=== PATIENT | female | born 1940 | race Caucasian/White ===

== ENCOUNTER → 2016-07-15 | Outpatient (CLI) | payer OTHER ==
[2012-12-30 10:50] VITALS: BP 162/67
== END ==
LOC: LAB 07:36
PROVIDERS: ATTEND Internal Medicine Gastroenterology
DX: K64.0 First degree hemorrhoids (principal)
CPT/HCPCS: 82270

== ENCOUNTER 2017-02-14 09:05 | Inpatient (IN) | payer OTHER ==
[2017-02-14] MEDS ORDERED: NS 250 ML IV 250 ML IV ONE (11:14)
[2017-02-14 11:26] LABS: BILIRUBIN,URINE NEGATIVE (NEGATIVE); BLOOD/HEMOGLOBIN,URINE 2+ (NEGATIVE); GLUCOSE, URINE NEGATIVE (NEGATIVE); KETONES,URINE NEGATIVE (NEGATIVE); LEUKOCYTE ESTERASE ,URINE 1+ (NEGATIVE); NITRITES,URINE NEGATIVE (NEGATIVE); PROTEIN,URINE NEGATIVE (NEGATIVE); UROBILINOGEN,URINE NORMAL (NORMAL)
[2017-02-14 11:36] LABS: APPEARANCE,URINE SLIGHTLY HAZY (CLEAR); COLOR,URINE YELLOW (YELLOW)
[2017-02-14 11:37] LABS: AMORPHOUS SEDIMENT,UR 1+ /HPF (NEGATIVE); BACTERIA,URINE 1+ /HPF (NEGATIVE); SQUAMOUS EPITHELIAL CELL,UR FEW /HPF (NEGATIVE)
[2017-02-14 11:51] LABS: BASOPHILS # (AUTO) 0.1 X10^3/uL (0.0-0.1); BASOPHILS % (AUTO) 1.1 % (0.2-1.0); EOSINOPHILS # (AUTO) 0.3 x10^3/uL (0.0-0.2); HEMATOCRIT 40.3 % (36.0-47.0); HEMOGLOBIN 13.9 g/dL (12.0-16.0); LYMPHOCYTES # (AUTO) 2.1 X10^3/uL (1.3-2.9); LYMPHOCYTES % (AUTO) 24.2 % (21.0-51.0); MEAN CORPUSCULAR HEMOGLOBIN 29.3 pg (27.0-34.0); MEAN CORPUSCULAR HGB CONC 34.6 g/dL (33.0-35.0); MEAN CORPUSCULAR VOLUME 84.7 fL (80.0-100.0); MEAN PLATELET VOLUME 8.3 fL (7.4-11.0); MONOCYTES # (AUTO) 0.6 x10^3/uL (0.3-0.8); MONOCYTES % (AUTO) 7.3 % (0.0-13.0); NEUTROPHILS # (AUTO) 5.6 x10^3/uL (2.2-4.8); NEUTROPHILS % (AUTO) 64.4 % (42.0-75.0); PLATELET COUNT 161 X10^3/uL (150.0-450.0); RED BLOOD COUNT 4.76 X10^6/uL (3.5-5.4); RED CELL DISTRIBUTION WIDTH 13.1 % (11.6-16.5); WHITE BLOOD COUNT 8.7 X10^3/uL (3.6-10.0)
[2017-02-14 12:00] VITALS: BMI 22.4
[2017-02-14] MEDS ORDERED: PREVNAR 13 IM ONE (12:00)
[2017-02-14 12:15] LABS: ALANINE AMINOTRANSFERASE 19 Units/L (12-78); ALBUMIN 3.2 g/dL (3.4-5.0); ALKALINE PHOSPHATASE 59 Units/L (46-116); ASPARTATE AMINO TRANSFERASE 21 Units/L (15-37); BLOOD UREA NITROGEN 20 mg/dL (7-18); CALCIUM 9.1 mg/dL (8.5-10.1); CARBON DIOXIDE 27.2 mmol/L (21-32); CHLORIDE 107 mmol/L (98-107); COR CA(FOR HYPOALB) 9.7 mg/dL (8.5-10.1); CREATINE KINASE 103 Units/L (26-192); CREATINE KINASE MB < 1.0 ng/mL (0-4.0); SODIUM 142 mmol/L (136-145); TOTAL PROTEIN 6.7 g/dL (6.4-8.2); TROPONIN I < 0.02 ng/mL (0-1.5); eGFR BLACK RACES > 60 (>60); eGFR NON BLACK RACES 51 (>60)
--- NOTE | 2017-02-14 12:24 | RAD ---
Examination: AP chest History: SOB and syncope Comparison reference: 09/29/2012 Findings: Continued normal heart size with essentially clear lungs. No pulmonary consolidation, pleur al fluid or pneumothorax is seen. A right shoulder prosthesis is present. Impression: No acute chest disease demonstrated. Status post right TSA. Reported By:
[2017-02-14] MEDS: NS 1000 ML 1,000 ML IV SCH (13:33)
[2017-02-14 15:43] LABS: CREATINE KINASE 100 Units/L (26-192); CREATINE KINASE MB < 1.0 ng/mL (0-4.0); TROPONIN I < 0.02 ng/mL (0-1.5)
[2017-02-14] MEDS: SYNTHROID 50 mcg TAB PO SCH (18:35)
[2017-02-14 19:43] LABS: CKMB % 1.1 % (<4); CREATINE KINASE 93 Units/L (26-192); CREATINE KINASE MB < 1.0 ng/mL (0-4.0); TROPONIN I < 0.02 ng/mL (0-1.5)
[2017-02-14] MEDS ORDERED: TUSSIONEX PENNKINETIC SUSP PO PRN (21:29)
[2017-02-14] MEDS: NS IV SCH (21:53)
[2017-02-14] MEDS: ROCEPHIN IV SCH (21:53)
[2017-02-14] MEDS ORDERED: DUONEB 0.5 MG/3 MG ONE (22:01)
[2017-02-14] MEDS ORDERED: SALINE 3% 15 ML NEB TX ONE (22:02)
[2017-02-14] MEDS ORDERED: SALINE 3% 15 ML NEB TX NEB ONE (22:11)
[2017-02-14] MEDS: DUONEB 0.5 MG/3 MG NEB SCH (22:13)
[2017-02-15] MEDS: DUONEB 0.5 MG/3 MG NEB SCH ×6 (00:05→21:20)
[2017-02-15 06:13] LABS: BASOPHILS % (AUTO) 0.6 % (0.2-1.0); EOSINOPHILS # (AUTO) 0.3 x10^3/uL (0.0-0.2); HEMATOCRIT 36.2 % (36.0-47.0); HEMOGLOBIN 12.6 g/dL (12.0-16.0); LYMPHOCYTES # (AUTO) 2.1 X10^3/uL (1.3-2.9); LYMPHOCYTES % (AUTO) 24.6 % (21.0-51.0); MEAN CORPUSCULAR HEMOGLOBIN 29.6 pg (27.0-34.0); MEAN CORPUSCULAR HGB CONC 34.8 g/dL (33.0-35.0); MEAN PLATELET VOLUME 8.5 fL (7.4-11.0); MONOCYTES # (AUTO) 0.7 x10^3/uL (0.3-0.8); MONOCYTES % (AUTO) 8.6 % (0.0-13.0); NEUTROPHILS # (AUTO) 5.5 x10^3/uL (2.2-4.8); NEUTROPHILS % (AUTO) 63.2 % (42.0-75.0); PLATELET COUNT 152 X10^3/uL (150.0-450.0); RED BLOOD COUNT 4.25 X10^6/uL (3.5-5.4); RED CELL DISTRIBUTION WIDTH 13.3 % (11.6-16.5); WHITE BLOOD COUNT 8.7 X10^3/uL (3.6-10.0)
[2017-02-15 06:31] LABS: ALANINE AMINOTRANSFERASE 16 Units/L (12-78); ALKALINE PHOSPHATASE 49 Units/L (46-116); ASPARTATE AMINO TRANSFERASE 19 Units/L (15-37); BLOOD UREA NITROGEN 20 mg/dL (7-18); CALCIUM 8.3 mg/dL (8.5-10.1); CARBON DIOXIDE 26.7 mmol/L (21-32); CHLORIDE 110 mmol/L (98-107); COR CA(FOR HYPOALB) 9.1 mg/dL (8.5-10.1); CREATININE 0.99 mg/dL (0.55-1.02); SODIUM 144 mmol/L (136-145); TOTAL PROTEIN 5.9 g/dL (6.4-8.2); eGFR BLACK RACES > 60 (>60); eGFR NON BLACK RACES 58 (>60)
[2017-02-15] MEDS: NS 1000 ML 1,000 ML IV SCH ×4 (07:00→20:38)
--- NOTE | 2017-02-15 09:11 | RAD ---
HISTORY: Dyspnea, single Study: Two-view chest Comparison: February 14, 2017 Findings: The heart is normal. There is no lobar mass or consolidation. There is no effusion or pneumothorax. T he patient is status post right total shoulder arthroplasty. IMPRESSION: No acute cardiopulmonary disease. Reported By:
[2017-02-15] MEDS: ROBITUSSIN DM PO SCH ×4 (09:16→20:38)
[2017-02-15] MEDS: NS IV SCH (09:16)
[2017-02-15] MEDS: ROCEPHIN IV SCH (09:16)
[2017-02-15] MEDS: SYNTHROID 50 mcg TAB PO SCH (15:59)
--- NOTE | 2017-02-15 16:00 | DR.H&P ---
H&P - History & Physical for Day of: H&P Date: 02/14/17 - Chief Complaint Chief Complaint: COUGH, NEAR SYNCOPE, SHORT OF BREATH - Allergies Allergies/Adverse Reactions: Allergies Allergy/AdvReac Type Severity Reaction Status Date / Time No Known Drug Allergies Allergy Verified 02/14/17 11:14 - History of Present Illness History of Present Illness: IS A 76 YEAR OLD PATIENT OF OURS WHO WAS A DIRECT ADMISSION FROM OUR OFFICE. SHE PRESENTED WITH COMPLAINTS OF COUGH, SHORTNESS OF BREATH, AND NEAR SYNCOPE. PATIENT REPORTS THAT THE COUGH IS NON- PRODUCTIVE AND THAT SHORTNESS OF BREATH IS WORSE ON EXERTION. SHE ALSO REPORTS INCREASED SHORTNESS OF BREATH AND PRESSURE WHEN LYING DOWN. PATIENT STATES THAT SHE JUST DOESNT FEEL GOOD AND FELT LIKE SHE WOULD PASS OUT ON EXAMINATION, LUNGS WERE NOTED WITH SCATTERED WHEEZING AND RHONCHI TO AUSCULTATON. ABDOMEN ROUND, SOFT, AND NON-TENDER WITH NORMAL BOWEL SOUNDS NOTED IN ALL QUADRANTS. SHE IS NOTED WITH COMPLAINTS OF TINGLING TO THE RIGHT SIDE OF THE FACE AT TIMES. WE PLANNED TO ADMIT PATIENT FOR FURTHER TREATMENT AND EVALUATION. WE PLANNED TO OBTAIN CBC, CMP, SERIAL CARDIAC ENZYMES AND EKGs, A CHEST XRAY, AND A URINALYSIS ON ADMISSION. ON ADMISSION, PATIENTS VITAL SIGNS WERE 97.9-75-18- 100%-114/55. ABNORMAL LAB VALUES INCLUDE THE FOLLOWING: BUN 20, CREATININE 1.10 , GFR 51, ALBUMIN 3.2. CARDIAC ENZYMES WERE UNREMARKABLE. URINALYSIS REPORTS WBC 2-4, RBC 2-4, LEUKOCYTES 1+, BACTERIA 1+, OCCULT BLOOD 2+. NEGATIVE FOR NITIRITES, PROTEIN, OR KETONES. CHEST XRAY REPORTED STATUS POST RIGHT TSA, NO ACUTE CHEST DISEASE DEMONSTRATED. INITIAL EKG REPORTED SINUS THYTHM, ATRIA PREMATURE COMPLEXES, HR 61. WE OBTAINED SPUTUM AND BLOOD CULTURES. CULTURES ARE PENDING. GRAM STAIN REPORTED GROWTH OF FEW GRAM POSITIVE COCCI, FEW GRAM NEGATIVE RODS, MANY WBC. PATIENT WAS STARTED ON THE PNEUMONIA PROTOCOL. ROCEPHIN 1GM DAILY, TUSSIONEX 5ML PO BID PRN, ROBITUSSIN 10ML PO QID, NORMAL SALINE AT 75ML/HR, AND DUONEBS Q4H. WE PLAN TO FOLLOW UP WITH AM LABS AND CHEST XRAY AND CONTINUE TO MONITOR PATIENT. - Past Surgical History Surgical History: Appendectomy, , Hysterectomy, Ortho Surgery - Family History Family Medical History: Cancer - Social History Does patient currently use any type of tobacco product: No Does any household member use tobacco: No Alcohol Use: None Drug Use: None - Physical Exam Vital Signs: Temperature 97.9 F Pulse Rate [Right Brachial] 75 Pulse Rate [Left Brachial] 77 Pulse Rate 67 Respiratory Rate 18 Blood Pressure [Right Arm] 114/55 Blood Pressure [Left Arm] 104/55 Blood Pressure 162/67 O2 Sat by Pulse Oximetry 98
--- NOTE | 2017-02-15 18:16 | VAS ---
VENOUS ULTRASOUND DOPPLER EXAMINATION OF THE RIGHT LOWER EXTREMITY HISTORY: Leg pain Comparison: None TECHNIQUE: Multiple brothers scale and color flow Doppler images of the deep venous system were obtained of the right lower extremity. FINDINGS: The deep venous system of the right lower extremity was evaluated from the level of the common femora l vein through the popliteal vein. Normal color flow and augmentation can be observed. In addition, normal compression is seen throughout the deep venous system. IMPRESSION: 1. Negative for DVT. Reported By:
[2017-02-16] MEDS: DUONEB 0.5 MG/3 MG NEB SCH ×6 (01:14→20:07)
[2017-02-16] MEDS: NS 1000 ML 1,000 ML IV SCH ×3 (02:22→18:16)
[2017-02-16 05:08] LABS: BASOPHILS % (AUTO) 0.5 % (0.2-1.0); EOSINOPHILS # (AUTO) 0.3 x10^3/uL (0.0-0.2); EOSINOPHILS % (AUTO) 3.9 % (0.9-2.9); HEMATOCRIT 34.1 % (36.0-47.0); HEMOGLOBIN 11.9 g/dL (12.0-16.0); LYMPHOCYTES # (AUTO) 2.3 X10^3/uL (1.3-2.9); LYMPHOCYTES % (AUTO) 35.3 % (21.0-51.0); MEAN CORPUSCULAR HEMOGLOBIN 29.8 pg (27.0-34.0); MEAN CORPUSCULAR HGB CONC 34.9 g/dL (33.0-35.0); MEAN CORPUSCULAR VOLUME 85.4 fL (80.0-100.0); MEAN PLATELET VOLUME 8.4 fL (7.4-11.0); MONOCYTES # (AUTO) 0.5 x10^3/uL (0.3-0.8); MONOCYTES % (AUTO) 8.3 % (0.0-13.0); NEUTROPHILS # (AUTO) 3.4 x10^3/uL (2.2-4.8); PLATELET COUNT 141 X10^3/uL (150.0-450.0); RED CELL DISTRIBUTION WIDTH 13.6 % (11.6-16.5); WHITE BLOOD COUNT 6.5 X10^3/uL (3.6-10.0)
[2017-02-16 05:23] LABS: ALANINE AMINOTRANSFERASE 16 Units/L (12-78); ALKALINE PHOSPHATASE 47 Units/L (46-116); ASPARTATE AMINO TRANSFERASE 18 Units/L (15-37); BLOOD UREA NITROGEN 15 mg/dL (7-18); CARBON DIOXIDE 25.4 mmol/L (21-32); CHLORIDE 110 mmol/L (98-107); COR CA(FOR HYPOALB) 8.8 mg/dL (8.5-10.1); CREATININE 1.01 mg/dL (0.55-1.02); SODIUM 144 mmol/L (136-145); TOTAL PROTEIN 5.9 g/dL (6.4-8.2); eGFR BLACK RACES > 60 (>60); eGFR NON BLACK RACES 56 (>60)
[2017-02-16] MEDS ORDERED: K-RIDER 10 MEQ/NS 100 ML 10 MEQ/100 ML BAG IV PRN (06:08)
[2017-02-16] MEDS ORDERED: K-LYTE EFFERVESCENT PO PRN (06:08)
[2017-02-16] MEDS ORDERED: MAGNESIUM SULFATE 1 GM/100 mL PREMIX 1 GM/100 ML BAG IV PRN (06:08)
[2017-02-16] MEDS ORDERED: MAG-OX TAB PO PRN (06:08)
[2017-02-16] MEDS: NS IV SCH (09:13)
[2017-02-16] MEDS: ROCEPHIN IV SCH (09:13)
[2017-02-16] MEDS: ROBITUSSIN DM PO SCH ×4 (09:13→21:11)
[2017-02-16] MEDS: SYNTHROID 50 mcg TAB PO SCH ×2 (09:13→15:30)
[2017-02-17] MEDS: DUONEB 0.5 MG/3 MG NEB SCH ×6 (00:47→16:16)
[2017-02-17] MEDS: NS 1000 ML 1,000 ML IV SCH ×2 (02:28→04:50)
[2017-02-17 05:12] LABS: ALANINE AMINOTRANSFERASE 15 Units/L (12-78); ALBUMIN 3.2 g/dL (3.4-5.0); ALKALINE PHOSPHATASE 52 Units/L (46-116); ASPARTATE AMINO TRANSFERASE 18 Units/L (15-37); BLOOD UREA NITROGEN 16 mg/dL (7-18); CALCIUM 8.6 mg/dL (8.5-10.1); CARBON DIOXIDE 25.7 mmol/L (21-32); CHLORIDE 107 mmol/L (98-107); COR CA(FOR HYPOALB) 9.2 mg/dL (8.5-10.1); CREATININE 0.97 mg/dL (0.55-1.02); SODIUM 142 mmol/L (136-145); TOTAL PROTEIN 6.6 g/dL (6.4-8.2); eGFR BLACK RACES > 60 (>60); eGFR NON BLACK RACES 59 (>60)
[2017-02-17 05:25] LABS: BASOPHILS # (AUTO) 0.1 X10^3/uL (0.0-0.1); BASOPHILS % (AUTO) 0.9 % (0.2-1.0); EOSINOPHILS # (AUTO) 0.4 x10^3/uL (0.0-0.2); EOSINOPHILS % (AUTO) 4.8 % (0.9-2.9); HEMATOCRIT 36.4 % (36.0-47.0); HEMOGLOBIN 12.7 g/dL (12.0-16.0); LYMPHOCYTES # (AUTO) 2.1 X10^3/uL (1.3-2.9); LYMPHOCYTES % (AUTO) 28.1 % (21.0-51.0); MEAN CORPUSCULAR HEMOGLOBIN 29.7 pg (27.0-34.0); MEAN CORPUSCULAR HGB CONC 34.9 g/dL (33.0-35.0); MEAN CORPUSCULAR VOLUME 85.2 fL (80.0-100.0); MEAN PLATELET VOLUME 8.5 fL (7.4-11.0); MONOCYTES # (AUTO) 0.6 x10^3/uL (0.3-0.8); MONOCYTES % (AUTO) 8.2 % (0.0-13.0); NEUTROPHILS # (AUTO) 4.4 x10^3/uL (2.2-4.8); PLATELET COUNT 163 X10^3/uL (150.0-450.0); RED BLOOD COUNT 4.27 X10^6/uL (3.5-5.4); RED CELL DISTRIBUTION WIDTH 13.4 % (11.6-16.5); WHITE BLOOD COUNT 7.5 X10^3/uL (3.6-10.0)
[2017-02-17] MEDS: ROBITUSSIN DM PO SCH ×3 (09:12→17:46)
[2017-02-17] MEDS: NS IV SCH (09:12)
[2017-02-17] MEDS: ROCEPHIN IV SCH (09:12)
[2017-02-17] MEDS: SYNTHROID 50 mcg TAB PO SCH ×2 (13:53→15:29)
[2017-02-17 18:20] VITALS: BP 167/80
--- NOTE | 2017-02-17 20:19 | PCM.PROG ---
Progress Note - Progress Note for Day of Date: 02/15/17 - Subjective Subjective: WAS ADMITTED FOR NEAR SYNCOPE, COUGH, AND SHORTNESS OF BREATH. TODAY, PATIENT IS ALERT AND ORIENTED, SITTING UP IN BED ON MORNING ROUNDS. PATIENTS FAMILY IS AT BEDSIDE. SHE CONTINUES WITH NON-PRODUCTIVE COUGH AND SHORTNESS OF BREATH. SHE IS ALSO NOTED WITH RIGHT LEG TENDERNESS. SHE DENIES ANY KNOWN INJURY. ON EXAMINATION, LUNGS CONTINUE WITH SCATTERED WHEEZING AND RHONCHI. ABDOMEN IS ROUND, SOFT, AND NON-TENDER WITH NORMAL BOWEL SOUNDS NOTED IN ALL QUADRANTS. RIGHT LOWER EXTREMITY IS NOTED TO BE SLIGHTLY MORE EDEMATOUS THAN THE LEFT LEG. PATIENT IS UTILIZING OXYGEN VIA NASAL CANNULA AT L/ MIN AT THIS TIME. HER VITAL SIGNS ARE 97.9-75-18-100%-114/55. ABNORMAL LAB VALUES INCLUDE THE FOLLOWING HGB 11.9, HCT 34.1, CHLORIDE 110, BUN 20, GFR 58, CALCIUM 8.3, TOTAL PROTEIN 5.9, ALBUMIN 3.0, A/G RATIO 1.0. CARDIAC ENZYMES HAVE BEEN WITHIN NORMAL LIMITS. A URINALYSIS WAS OBTAINED LAST NIGHT AND REPORTS WBC 2-4, RBC 2-4, LEUKOCYTES 1+, BACTERIA 1+, PROTEIN NEGATIVE, NITRITIES NEGATIVE. TODAYS CHEST XRAY REPORTS NO ACUTE CARDIOPULMONARY DISEASE. TODAY, WE PLAN TO OBTAIN A VENOUS DOPPLER FOR COMPLAINTS OF RIGHT LEG PAIN. OTHERWISE, WE WILL CONTINUE WITH IV ANTIBIOTICS FOR ACUTE BRONCHITIS. WE PLAN TO FOLLOW UP WITH AM LABS AND CONTINUE TO MONITOR PATIENT. - Past Medical Family Social History Past Med/Fam/Surg Hx: No changes since H&P Allergies: Allergies No Known Drug Allergies Allergy (Verified 02/14/17 11:14) - Review of Systems ROS: No change since H&P - Vital Signs and I&O's Vital Signs: Temperature 97.6 F Pulse Rate [Right Brachial] 85 Pulse Rate [Left Brachial] 77 Pulse Rate 71 Respiratory Rate 20 Blood Pressure [Right Arm] 167/80 Blood Pressure [Left Arm] 104/55 Blood Pressure 162/67 O2 Sat by Pulse Oximetry 96 Intake and Output: Intake & Output 02/15/17 02/16/17 02/17/17 02/18/17 11:59 11:59 11:59 11:59 Intake Total 1291 2916 2392 680 Balance 1291 2916 2392 680 - Physical Exam Oriented: Normal Eyes: Normal Ear: Normal Nose: Normal Throat: Normal Respiratory: Right, Left, Generalized, Wheezes, Rhonchi Cardiovascular: Edema (RIGHT LEG) : Normal Auscultation: Bowel Sounds: Normal Palpation: Normal Tenderness: Normal Skin: Normal Musculoskeletal: Right, Leg, Swelling, Tender Psychiatric: Normal Mood Description: Calm Affect: Normal Speech Pattern: Clear, Appropriate - Laboratory and Diagnostics Result Diagrams: 02/17/17 03:30 02/17/17 03:30 Labs: 02/14/17 22:37 Sputum - Expectorated Sputum Sputum Culture - Final 02/14/17 22:37 Sputum - Expectorated Sputum - Final 02/14/17 21:50 Blood Blood Culture - Preliminary 02/14/17 21:45 Blood Blood Culture - Preliminary Laboratory WBC 7.5 X10^3/uL (3.6-10.0) 02/17/17 03:30 RBC 4.27 X10^6/uL (3.5-5.4) 02/17/17 03:30 Hgb 12.7 g/dL (12.0-16.0) 02/17/17 03:30 Hct 36.4 % (36.0-47.0) 02/17/17 03:30 MCV 85.2 fL (80.0-100.0) 02/17/17 03:30 MCH 29.7 pg (27.0-34.0) 02/17/17 03:30 MCHC 34.9 g/dL (33.0-35.0) 02/17/17 03:30 RDW 13.4 % (11.6-16.5) 02/17/17 03:30 Plt Count 163 X10^3/uL (150.0-450.0) 02/17/17 03:30 MPV 8.5 fL (7.4-11.0) 02/17/17 03:30 Neut % 58.0 % (42.0-75.0) 02/17/17 03:30 Lymph % 28.1 % (21.0-51.0) 02/17/17 03:30 Knott % 8.2 % (0.0-13.0) 02/17/17 03:30 Eos % 4.8 % (0.9-2.9) H 02/17/17 03:30 Baso % 0.9 % (0.2-1.0) 02/17/17 03:30 Neut # 4.4 x10^3/uL (2.2-4.8) 02/17/17 03:30 Lymph # 2.1 X10^3/uL (1.3-2.9) 02/17/17 03:30 Knott # 0.6 x10^3/uL (0.3-0.8) 02/17/17 03:30 Eos # 0.4 x10^3/uL (0.0-0.2) H 02/17/17 03:30 Baso # 0.1 X10^3/uL (0.0-0.1) 02/17/17 03:30 Absolute Nucleated RBC 0.1 /100WBC 02/17/17 03:30 Sodium 142 mmol/L (136-145) 02/17/17 03:30 Corrected Sodium TNP 02/17/17 03:30 Potassium 3.9 mmol/L (3.5-5.1) 02/17/17 03:30 Chloride 107 mmol/L (98-107) 02/17/17 03:30 Carbon Dioxide 25.7 mmol/L (21-32) 02/17/17 03:30 BUN 16 mg/dL (7-18) 02/17/17 03:30 Creatinine 0.97 mg/dL (0.55-1.02) 02/17/17 03:30 Est GFR (MDRD) Af Amer > 60 (>60) 02/17/17 03:30 Est GFR (MDRD) Non-Af 59 (>60) 02/17/17 03:30 Glucose 94 mg/dL (65-99) 02/17/17 03:30 Calcium 8.6 mg/dL (8.5-10.1) 02/17/17 03:30 Corrected Calcium 9.2 mg/dL (8.5-10.1) 02/17/17 03:30 Magnesium 2.0 mg/dL (1.7-2.9) 02/16/17 03:05 Total Bilirubin 0.30 mg/dL (0.2-1.0) 02/17/17 03:30 AST 18 Units/L (15-37) 02/17/17 03:30 ALT 15 Units/L (12-78) 02/17/17 03:30 Alkaline Phosphatase 52 Units/L (46-116) 02/17/17 03:30 Creatine Kinase 93 Units/L (26-192) 02/14/17 19:05 CK-MB (CK-2) < 1.0 ng/mL (0-4.0) 02/14/17 19:05 CK/CKMB % Calc 1.1 % (<4) 02/14/17 19:05 Troponin I < 0.02 ng/mL (0-1.5) 02/14/17 19:05 Total Protein 6.6 g/dL (6.4-8.2) 02/17/17 03:30 Albumin 3.2 g/dL (3.4-5.0) L 02/17/17 03:30 Globulin 3.4 g/dL (2.5-4.5) 02/17/17 03:30 Albumin/Globulin Ratio 0.9 Ratio (1.1-2.1) L 02/17/17 03:30 Specimen Type Clean catch urine 02/14/17 11:15 Urine Color Yellow (YELLOW) 02/14/17 11:15 Urine Appearance Slightly hazy (CLEAR) 02/14/17 11:15 Urine pH 5.0 (5.0 - 8.0) 02/14/17 11:15 Ur Specific [place] 1.025 (1.000-1.030) 02/14/17 11:15 Urine Protein Negative (NEGATIVE) 02/14/17 11:15 Urine Glucose (UA) Negative (NEGATIVE) 02/14/17 11:15 Urine Ketones Negative (NEGATIVE) 02/14/17 11:15 Urine Occult Blood 2+ (NEGATIVE) 02/14/17 11:15 Urine Nitrite Negative (NEGATIVE) 02/14/17 11:15 Urine Bilirubin Negative (NEGATIVE) 02/14/17 11:15 Urine Urobilinogen Normal (NORMAL) 02/14/17 11:15 Ur Leukocyte Esterase 1+ (NEGATIVE) 02/14/17 11:15 Urine RBC 2-4 /HPF (NEGATIVE) 02/14/17 11:15 Urine WBC 2-4 /HPF (NEGATIVE) 02/14/17 11:15 Ur Squamous Epith Cells Few /HPF (NEGATIVE) 02/14/17 11:15 Amorphous Sediment 1+ /HPF (NEGATIVE) 02/14/17 11:15 Urine Bacteria 1+ /HPF (NEGATIVE) 02/14/17 11:15 Ur Culture Indicated? No/not indicated 02/14/17 11:15 - Plan (1) Bronchitis Status: Acute Plan: CONTINUE IV ANTIBIOTICS, CONTINUE RESPIRATORY TREATMENTS, CONTINUE SUPPLEMENTAL OXYGEN, CONTINUE TO MONITOR. (2) Shortness of breath Status: Acute Plan: CONTINUE RESPIRATORY TREATMENTS, SUPPLEMENTAL OXYGEN, CONTINUE TO MONITOR (3) Syncope Status: Acute Qualifiers: Syncope type: unspecified Qualified Code(s): R55 - Syncope and collapse Plan: OBTAIN ECHO ON FRIDAY, CONTINUE TO MONITOR
== END 2017-02-17 18:10 | disposition home or self-care (01) | DRG 203 ==
LOC: UNDOADMOB 09:05 → MED/SURG 09:05 → OBSVTOIN 02-16 10:00
PROVIDERS: ADMIT Internal Medicine; ATTEND Internal Medicine
DX: J20.8 Acute bronchitis due to other specified organisms (principal); R55 Syncope and collapse; R06.02 Shortness of breath; R60.0 Localized edema
CPT/HCPCS: 36415; 71010; 80053; 81001; 82550; 82553; 83735; 84484; 85025; 87040; 87070; 87205; 93005; 93306; 93971; 94640; 94760; A4222; 90670; G0378; J0696; J7620

== ENCOUNTER → 2017-03-26 | Outpatient (CLI) | payer OTHER | LOC: RAD 13:09 | PROVIDERS: ATTEND Internal Medicine | DX: Z12.31 Encounter for screening mammogram for malignant neoplasm of breast (principal) | CPT/HCPCS: 77067 ==

== ENCOUNTER 2017-03-27 08:05 | Day surgery (SDC) | payer OTHER ==
[2017-03-27] MEDS ORDERED: D5 LR 1000 ML 1,000 ML IV ONE (08:28)
[2017-03-27] MEDS ORDERED: DIPRIVAN VIAL 20 ML ONE (10:50)
[2017-03-27] MEDS ORDERED: DIPRIVAN VIAL 10 ML ONE (11:13)
[2017-03-27 11:37] VITALS: BP 118/55
== END 2017-03-27 11:40 | disposition home or self-care (01) ==
LOC: SURG1 08:05
PROVIDERS: ATTEND Internal Medicine Gastroenterology
PROC: 0DBM8ZX Excision of Descending Colon, Via Natural or Artificial Opening Endoscopic, Diagnostic (ICD-10-PCS; principal; 2017-03-27 11:45)
PROC: 0DJD8ZZ Inspection of Lower Intestinal Tract, Via Natural or Artificial Opening Endoscopic (ICD-10-PCS; principal; 2017-03-27 11:45)
PROC: 0DBK8ZX Excision of Ascending Colon, Via Natural or Artificial Opening Endoscopic, Diagnostic (ICD-10-PCS; principal; 2017-03-27 11:45)
DX: K63.5 Polyp of colon (principal); K64.0 First degree hemorrhoids; Z86.010 Personal history of colon polyps; D12.2 Benign neoplasm of ascending colon; D12.4 Benign neoplasm of descending colon
CPT/HCPCS: 99100; A4217; J3490; J7120

== ENCOUNTER 2018-05-08 09:33 | Inpatient (IN) ==
[2018-05-08] MEDS ORDERED: TUSSIONEX PENNKINETIC SUSP PO PRN (13:06)
[2018-05-08 13:29] LABS: BASOPHILS % (AUTO) 0.6 % (0.2-1.0); EOSINOPHILS # (AUTO) 0.1 x10^3/uL (0.0-0.2); EOSINOPHILS % (AUTO) 2.1 % (0.9-2.9); HEMATOCRIT 40.6 % (36.0-47.0); LYMPHOCYTES # (AUTO) 1.8 X10^3/uL (1.3-2.9); LYMPHOCYTES % (AUTO) 31.2 % (21.0-51.0); MEAN CORPUSCULAR HEMOGLOBIN 29.2 pg (27.0-34.0); MEAN CORPUSCULAR HGB CONC 34.6 g/dL (33.0-35.0); MEAN CORPUSCULAR VOLUME 84.6 fL (80.0-100.0); MEAN PLATELET VOLUME 7.6 fL (7.4-11.0); MONOCYTES # (AUTO) 0.8 x10^3/uL (0.3-0.8); MONOCYTES % (AUTO) 14.9 % (0.0-13.0); NEUTROPHILS # (AUTO) 2.9 x10^3/uL (2.2-4.8); NEUTROPHILS % (AUTO) 51.2 % (42.0-75.0); PLATELET COUNT 140 X10^3/uL (150.0-450.0); RED BLOOD COUNT 4.81 X10^6/uL (3.5-5.4); RED CELL DISTRIBUTION WIDTH 13.7 % (11.6-16.5); WHITE BLOOD COUNT 5.7 X10^3/uL (3.6-10.0)
[2018-05-08 13:41] LABS: ALANINE AMINOTRANSFERASE 46 Units/L (12-78); ALBUMIN 3.5 g/dL (3.4-5.0); ALKALINE PHOSPHATASE 78 Units/L (46-116); ASPARTATE AMINO TRANSFERASE 50 Units/L (15-37); BLOOD UREA NITROGEN 18 mg/dL (7-18); CALCIUM 9.4 mg/dL (8.5-10.1); CARBON DIOXIDE 25.8 mmol/L (21-32); CHLORIDE 102 mmol/L (98-107); CREATININE 1.42 mg/dL (0.55-1.02); SODIUM 138 mmol/L (136-145); TOTAL PROTEIN 7.3 g/dL (6.4-8.2); eGFR NON BLACK RACES 38 (>60)
[2018-05-08] MEDS: NS 1/2 1000 ML IV 1,000 ML IV SCH ×2 (15:05→20:18)
[2018-05-08] MEDS: TAMIFLU PO SCH ×2 (15:21→20:18)
[2018-05-08] MEDS: ROBITUSSIN DM PO SCH ×3 (15:21→20:18)
[2018-05-08] MEDS: LEVAQUIN PREMIX IV 750 MG 750 MG/150 ML BAG IV SCH (15:21)
[2018-05-08] MEDS: DUONEB 0.5 MG/3 MG NEB SCH ×2 (16:31→20:23)
--- NOTE | 2018-05-08 17:02 | RAD ---
Chest PA and lateral Indication: Cough and congestion with pneumonia Comparison: 02/15/2017 Findings: There is no pneumothorax or effusion. There is cardiomegaly and COPD change with pulmonary hyperinflation. There is patchy left lower lung opacity. Right shoulder hardware noted Impression: Cardiomegaly and COPD change with patchy left lower lung opacity. Developing pneumonia not excluded. Follow-up to resolution to exclude underlying lesion. Reported By:
[2018-05-08] MEDS ORDERED: NS 1/2 1000 ML IV 1,000 ML IV ONE (19:46)
[2018-05-08] MEDS ORDERED: NEOSPORIN OINT ONE (20:55)
[2018-05-09] MEDS: DUONEB 0.5 MG/3 MG NEB SCH ×5 (00:23→16:07)
[2018-05-09] MEDS: NS 1/2 1000 ML IV 1,000 ML IV SCH ×3 (04:41→18:56)
[2018-05-09 05:09] LABS: BASOPHILS % (AUTO) 0.6 % (0.2-1.0); EOSINOPHILS # (AUTO) 0.1 x10^3/uL (0.0-0.2); EOSINOPHILS % (AUTO) 2.4 % (0.9-2.9); HEMATOCRIT 35.8 % (36.0-47.0); HEMOGLOBIN 12.4 g/dL (12.0-16.0); LYMPHOCYTES # (AUTO) 1.4 X10^3/uL (1.3-2.9); MEAN CORPUSCULAR HEMOGLOBIN 29.5 pg (27.0-34.0); MEAN CORPUSCULAR HGB CONC 34.7 g/dL (33.0-35.0); MEAN CORPUSCULAR VOLUME 84.8 fL (80.0-100.0); MEAN PLATELET VOLUME 7.9 fL (7.4-11.0); MONOCYTES # (AUTO) 0.6 x10^3/uL (0.3-0.8); MONOCYTES % (AUTO) 14.4 % (0.0-13.0); NEUTROPHILS # (AUTO) 2.3 x10^3/uL (2.2-4.8); NEUTROPHILS % (AUTO) 50.6 % (42.0-75.0); PLATELET COUNT 141 X10^3/uL (150.0-450.0); RED BLOOD COUNT 4.22 X10^6/uL (3.5-5.4); RED CELL DISTRIBUTION WIDTH 13.4 % (11.6-16.5); WHITE BLOOD COUNT 4.5 X10^3/uL (3.6-10.0)
[2018-05-09 05:20] LABS: ALANINE AMINOTRANSFERASE 41 Units/L (12-78); ALKALINE PHOSPHATASE 66 Units/L (46-116); ASPARTATE AMINO TRANSFERASE 41 Units/L (15-37); BLOOD UREA NITROGEN 19 mg/dL (7-18); CALCIUM 8.8 mg/dL (8.5-10.1); CHLORIDE 106 mmol/L (98-107); COR CA(FOR HYPOALB) 9.6 mg/dL (8.5-10.1); CREATININE 1.34 mg/dL (0.55-1.02); SODIUM 141 mmol/L (136-145); TOTAL PROTEIN 6.5 g/dL (6.4-8.2); eGFR NON BLACK RACES 41 (>60)
[2018-05-09] MEDS ORDERED: POTASSIUM CHL 60 MEQ/NS 0.45% 500 ML IV PRN (05:29)
[2018-05-09] MEDS ORDERED: K-RIDER 10 MEQ/NS 100 ML 10 MEQ/100 ML BAG IV PRN (05:29)
[2018-05-09] MEDS ORDERED: MICRO K EXTEN CAP 10 MEQ PO PRN (05:29)
[2018-05-09] MEDS ORDERED: KLOR-CON PO PRN (05:29)
[2018-05-09] MEDS ORDERED: MAGNESIUM SULFATE 1 GRAM/100 mL PREMIX 1 GM/100 ML BAG IV PRN (05:29)
[2018-05-09] MEDS ORDERED: POTASSIUM CHLORIDE LIQ 20 MEQ UDC PO PRN (05:29)
[2018-05-09] MEDS ORDERED: POTASSIUM CHL 40 MEQ/NS 0.45% 500 ML IV PRN (05:29)
[2018-05-09] MEDS: K-DUR TAB 20 MEQ PO PRN ×2 (06:22→14:53)
[2018-05-09] MEDS: LEVAQUIN PREMIX IV 750 MG 750 MG/150 ML BAG IV SCH (08:21)
[2018-05-09] MEDS: ZOCOR TAB 20 MG PO SCH (08:21)
[2018-05-09] MEDS: TAMIFLU PO SCH ×2 (08:21→21:18)
[2018-05-09] MEDS: ROBITUSSIN DM PO SCH ×4 (08:21→21:18)
[2018-05-09] MEDS ORDERED: FLUVIRIN IM ONE (09:54)
[2018-05-09] MEDS ORDERED: COLACE CAP 100 MG PO PRN (13:40)
[2018-05-09] MEDS: LOVENOX INJ 40 MG SYR SC SCH (14:54)
[2018-05-09] MEDS: SYNTHROID 50 mcg TAB PO SCH (16:37)
[2018-05-09] MEDS ORDERED: NS 1/2 1000 ML IV 1,000 ML IV ONE (18:49)
[2018-05-09] MEDS: RESTORIL CAP 15 MG PO PRN (21:18)
[2018-05-10 04:57] LABS: BASOPHILS % (AUTO) 0.5 % (0.2-1.0); EOSINOPHILS # (AUTO) 0.3 x10^3/uL (0.0-0.2); EOSINOPHILS % (AUTO) 5.9 % (0.9-2.9); HEMATOCRIT 37.2 % (36.0-47.0); LYMPHOCYTES # (AUTO) 2.1 X10^3/uL (1.3-2.9); LYMPHOCYTES % (AUTO) 36.6 % (21.0-51.0); MEAN CORPUSCULAR HEMOGLOBIN 29.6 pg (27.0-34.0); MEAN CORPUSCULAR VOLUME 84.6 fL (80.0-100.0); MONOCYTES # (AUTO) 0.6 x10^3/uL (0.3-0.8); MONOCYTES % (AUTO) 10.7 % (0.0-13.0); NEUTROPHILS # (AUTO) 2.7 x10^3/uL (2.2-4.8); NEUTROPHILS % (AUTO) 46.3 % (42.0-75.0); PLATELET COUNT 153 X10^3/uL (150.0-450.0); RED CELL DISTRIBUTION WIDTH 13.5 % (11.6-16.5); WHITE BLOOD COUNT 5.8 X10^3/uL (3.6-10.0)
[2018-05-10 05:11] LABS: ALANINE AMINOTRANSFERASE 33 Units/L (12-78); ALKALINE PHOSPHATASE 67 Units/L (46-116); ASPARTATE AMINO TRANSFERASE 30 Units/L (15-37); BLOOD UREA NITROGEN 15 mg/dL (7-18); CALCIUM 8.7 mg/dL (8.5-10.1); CARBON DIOXIDE 24.7 mmol/L (21-32); CHLORIDE 108 mmol/L (98-107); COR CA(FOR HYPOALB) 9.5 mg/dL (8.5-10.1); CREATININE 1.38 mg/dL (0.55-1.02); SODIUM 141 mmol/L (136-145); TOTAL PROTEIN 6.3 g/dL (6.4-8.2); eGFR NON BLACK RACES 39 (>60)
[2018-05-10] MEDS ORDERED: NS 1/2 1000 ML IV 1,000 ML IV ONE (05:44)
[2018-05-10] MEDS: XOPENEX 1.25 MG/3 ML NEBULE NEB SCH ×4 (05:46→17:00)
[2018-05-10] MEDS: NS 1/2 1000 ML IV 1,000 ML IV SCH ×2 (06:07→21:06)
--- NOTE | 2018-05-10 06:56 | RAD ---
Examination: Chest, PA and lateral views History: Pneumonia Comparison 05/08/2018 Findings: Continued normal heart size. There is now no definite pulmonary infiltrate or consolidation, adenopathy or pleural fluid. Prominent interstitial markings in the right lung base may reflect mild fibrosis. Available lateral view is technically limited by obscuring anatomic structures. Impression: No acute chest abnormality demonstrated. Reported By:
[2018-05-10] MEDS: LEVAQUIN PREMIX IV 750 MG 750 MG/150 ML BAG IV SCH (08:18)
[2018-05-10] MEDS: LOVENOX INJ 40 MG SYR SC SCH (08:19)
[2018-05-10] MEDS: ROBITUSSIN DM PO SCH ×4 (08:20→21:06)
[2018-05-10] MEDS: ZOCOR TAB 20 MG PO SCH (08:20)
[2018-05-10] MEDS: TAMIFLU PO SCH ×2 (08:20→21:06)
[2018-05-10] MEDS: SYNTHROID 50 mcg TAB PO SCH (17:23)
[2018-05-10] MEDS: RESTORIL CAP 15 MG PO PRN (21:06)
[2018-05-11] MEDS ORDERED: NS 1/2 1000 ML IV 1,000 ML IV ONE (00:35)
[2018-05-11] MEDS: XOPENEX 1.25 MG/3 ML NEBULE NEB SCH ×2 (00:37→05:35)
[2018-05-11 05:03] LABS: BASOPHILS % (AUTO) 0.4 % (0.2-1.0); EOSINOPHILS # (AUTO) 0.3 x10^3/uL (0.0-0.2); EOSINOPHILS % (AUTO) 4.7 % (0.9-2.9); HEMATOCRIT 37.4 % (36.0-47.0); HEMOGLOBIN 12.7 g/dL (12.0-16.0); LYMPHOCYTES # (AUTO) 2.1 X10^3/uL (1.3-2.9); LYMPHOCYTES % (AUTO) 33.5 % (21.0-51.0); MEAN CORPUSCULAR HEMOGLOBIN 29.2 pg (27.0-34.0); MEAN CORPUSCULAR HGB CONC 33.9 g/dL (33.0-35.0); MEAN CORPUSCULAR VOLUME 85.9 fL (80.0-100.0); MONOCYTES # (AUTO) 0.7 x10^3/uL (0.3-0.8); MONOCYTES % (AUTO) 10.9 % (0.0-13.0); NEUTROPHILS # (AUTO) 3.2 x10^3/uL (2.2-4.8); NEUTROPHILS % (AUTO) 50.5 % (42.0-75.0); PLATELET COUNT 161 X10^3/uL (150.0-450.0); RED BLOOD COUNT 4.35 X10^6/uL (3.5-5.4); RED CELL DISTRIBUTION WIDTH 13.4 % (11.6-16.5); WHITE BLOOD COUNT 6.4 X10^3/uL (3.6-10.0)
[2018-05-11 05:16] LABS: ALANINE AMINOTRANSFERASE 29 Units/L (12-78); ALBUMIN 2.9 g/dL (3.4-5.0); ALKALINE PHOSPHATASE 69 Units/L (46-116); ASPARTATE AMINO TRANSFERASE 26 Units/L (15-37); BLOOD UREA NITROGEN 12 mg/dL (7-18); CALCIUM 8.7 mg/dL (8.5-10.1); CARBON DIOXIDE 25.1 mmol/L (21-32); COR CA(FOR HYPOALB) 9.6 mg/dL (8.5-10.1); CREATININE 1.22 mg/dL (0.55-1.02); SODIUM 141 mmol/L (136-145); TOTAL PROTEIN 6.2 g/dL (6.4-8.2); eGFR NON BLACK RACES 45 (>60)
[2018-05-11 06:40] LABS: CHLORIDE 105 mmol/L (98-107)
--- NOTE | 2018-05-11 06:54 | RAD ---
History: Pneumonia Study: AP chest Comparison: Yesterday Findings: There is mild chronic diffuse interstitial lung disease. The heart size is normal. There is no edema or effusion. There is a right shoulder prosthesis well seated. Impression: No acute disease demonstrated Reported By:
[2018-05-11 08:17] VITALS: BP 129/58
[2018-05-11] MEDS: ZOCOR TAB 20 MG PO SCH (09:23)
[2018-05-11] MEDS: ROBITUSSIN DM PO SCH (09:23)
[2018-05-11] MEDS: TAMIFLU PO SCH (09:24)
[2018-05-11] MEDS: LOVENOX INJ 40 MG SYR SC SCH (09:25)
[2018-05-12] MEDS ORDERED: LEVAQUIN PREMIX IV 750 MG 750 MG/150 ML BAG IV SCH (10:00)
== END 2018-05-11 11:20 | disposition home or self-care (01) | DRG 195 ==
LOC: MED/SURG 12:09
PROVIDERS: ADMIT Internal Medicine; ATTEND Internal Medicine
DX: J18.0 Bronchopneumonia, unspecified organism; R74.8 Abnormal levels of other serum enzymes; R94.4 Abnormal results of kidney function studies; J10.1 Influenza due to other identified influenza virus with other respiratory manifestations; R06.03 Acute respiratory distress
CPT/HCPCS: 36415; 71010; 71020; 71045; 71046; 80053; 83735; 84132; 85025; 87040; 87070; 87205; 93005; 94640; 94760; 99231; A4222; G9035; J1650; J1956; J7620

== ENCOUNTER 2024-10-20 13:21 | Observation (INO) ==
[2024-10-20] MEDS ORDERED: ULTANE GAS IN ONE (15:14)
[2024-10-20] MEDS ORDERED: KETAMINE HCL ONE (15:14)
[2024-10-20] MEDS: LEVAQUIN PREMIX IV 500 MG 500 MG/100 ML BAG IV SCH (16:18)
[2024-10-20] MEDS: D5 1/2 NS 1,000 ML 1,000 ML IV SCH (16:18)
[2024-10-20 16:28] LABS: MEAN PLATELET VOLUME 7.8 fL (7.4-11.0); RED CELL DISTRIBUTION WIDTH 14.5 % (11.6-16.5)
--- NOTE | 2024-10-20 16:51 | EKG ---
Test Reason : pre-op Blood Pressure : */* mmHG Vent. Rate : 70 BPM Atrial Rate : 70 BPM P-R Int : 172 ms QRS Dur : 110 ms QT Int : 404 ms P-R-T Axes : 63 -28 -5 degrees QTc Int : 436 ms Sinus rhythm with premature atrial complexes Incomplete right bundle branch block Moderate voltage criteria for LVH, may be normal variant ( R in aVL , Terry product ) Possible Anterior infarct , age undetermined Abnormal ECG When compared with ECG of 08-OCT-2024 20:47, premature atrial complexes are now present Nonspecific T wave abnormality now evident in Lateral leads Confirmed by Konrad Willis MD ([id number]) on 10/20/2024 5:45:44 PM Referred By: Confirmed By: Konrad Willis MD
[2024-10-20 17:12] LABS: COR NA(FOR HYPERGLY) 144 mmol/L (136-145); CREATININE 1.24 mg/dL (0.55-1.02); eGFR NON BLACK RACES 44 (>60)
[2024-10-20 17:18] VITALS: BMI 26.4
[2024-10-20] MEDS: COZAAR PO SCH (21:01)
[2024-10-20] MEDS: ALPRAZOLAM ODT PO SCH (21:01)
[2024-10-20] MEDS: HIBICLENS WASH EXT ONE (21:06)
[2024-10-21 06:54] LABS: MEAN PLATELET VOLUME 8.0 fL (7.4-11.0); RED CELL DISTRIBUTION WIDTH 13.8 % (11.6-16.5)
[2024-10-21 07:09] LABS: CREATININE 1.08 mg/dL (0.55-1.02); eGFR NON BLACK RACES 51 (>60)
[2024-10-21] MEDS ORDERED: NS IRRIGATION* 1,000 ML IR ONE (08:00)
[2024-10-21] MEDS: MORPHINE SULFATE INJ 2 MG INJ IVP PRN (08:16)
[2024-10-21] MEDS: PROTONIX TAB 40 MG PO SCH (08:33)
[2024-10-21] MEDS: LIPITOR TAB 10 MG PO SCH (08:33)
[2024-10-21] MEDS ORDERED: PHARMACY CONSULT XX SCH (09:00)
--- NOTE | 2024-10-21 09:23 | RAD ---
EXAM: CHEST, 1 VIEW HISTORY: PREOP GB; COMPARISON: Prior study or studies were utilized for comparison during interpretation with the most relevant dated 10/08/2024 TECHNIQUE: CHEST, 1 VIEW FINDINGS: Chest: Lines and tubes: None Mediastinum: Cardiac and mediastinal shadow is within normal limits for size and contour. Pulmonary vessels: No pulmonary vascular congestion. Lung michele: No suspicious airspace opacity. Pleura: No effusion. No pneumothorax. Bones and soft tissues: No acute osseous or soft tissue abnormality. IMPRESSION: 1. No acute cardiopulmonary abnormality THIS IS AN ELECTRONICALLY VERIFIED FINAL REPORT 10/21/2024 9:20 AM - Electronically signed by Faheem Bro MD
[2024-10-21] MEDS: LOVENOX INJ 40 MG SYR SC SCH (09:45)
[2024-10-21] MEDS: LR 1,000 ML IV 1,000 ML IV ONE (12:38)
[2024-10-21] MEDS ORDERED: VERSED ONE (12:44)
[2024-10-21] MEDS ORDERED: OFIRMEV IV 1000 MG VIAL 1,000 MG/100 ML VIAL IV ONE (12:44)
[2024-10-21] MEDS ORDERED: ZEMURON 100 MG VIAL ONE (12:45)
[2024-10-21] MEDS ORDERED: FENTANYL VIAL INJ 100 mcg ONE (12:45)
[2024-10-21] MEDS ORDERED: AMIDATE INJ 40 MG VIAL ONE (12:45)
[2024-10-21] MEDS ORDERED: XYLOCAINE 2 % (PLAIN) ONE (12:45)
[2024-10-21] MEDS ORDERED: DIPRIVAN VIAL 20 ML ONE (12:45)
[2024-10-21] MEDS ORDERED: ZOFRAN INJ 4 MG VIAL ONE (12:45)
[2024-10-21] MEDS: LR 1,000 ML IV 500 ML IV PRN (12:45)
[2024-10-21] MEDS ORDERED: BRIDION ONE (12:45)
[2024-10-21] MEDS: ANCEF VIAL 1 GRAM ONE (12:50)
[2024-10-21] MEDS: NS 100 ML IV 100 ML ONE (12:50)
[2024-10-21] MEDS: ZOFRAN INJ 4 MG VIAL IVP PRN ×2 (13:01→15:22)
[2024-10-21] MEDS: ANCEF VIAL 1 GRAM IV PRN (13:03)
[2024-10-21] MEDS: MARCAINE 0.5% ONE (13:05)
[2024-10-21] MEDS: VERSED IVP PRN (13:06)
[2024-10-21] MEDS: FENTANYL VIAL INJ 100 mcg IVP PRN (13:11)
[2024-10-21] MEDS ORDERED: XYLOCAINE 2 % (PLAIN) PRN (13:11)
[2024-10-21] MEDS: AMIDATE INJ 40 MG VIAL IVP PRN (13:12)
[2024-10-21] MEDS: ZEMURON 100 MG VIAL IVP PRN (13:13)
[2024-10-21] MEDS ORDERED: EPHEDRINE SULFATE INJ ONE (13:19)
[2024-10-21] MEDS: EPHEDRINE SULFATE INJ IVP PRN ×2 (13:21→14:08)
[2024-10-21] MEDS: OFIRMEV IV 1000 MG VIAL 1,000 MG/100 ML VIAL IV PRN (13:25)
[2024-10-21] MEDS: DIPRIVAN VIAL 200 ML IVP PRN (13:27)
[2024-10-21] MEDS ORDERED: NORMODYNE INJ 20 MG VIAL ONE (13:38)
[2024-10-21] MEDS: NORMODYNE INJ 20 MG VIAL IVP PRN (13:39)
[2024-10-21] MEDS: KETAMINE HCL IV PRN (13:42)
[2024-10-21] MEDS ORDERED: BENADRYL INJ 50 MG VIAL IVP PRN (13:45)
[2024-10-21] MEDS ORDERED: BARHEMSYS INJ IVP PRN (13:45)
[2024-10-21] MEDS ORDERED: DECADRON INJ ONE (13:52)
[2024-10-21] MEDS: DECADRON INJ IVP PRN (13:54)
[2024-10-21] MEDS: BRIDION IVP PRN (14:02)
[2024-10-21] MEDS: BACTROBAN TOPICAL OINT ONE (14:05)
[2024-10-21] MEDS ORDERED: DILAUDID INJ ONE (14:27)
[2024-10-21] MEDS: DILAUDID INJ IVP PRN (14:30)
[2024-10-21 18:06] VITALS: RESP 18
[2024-10-21] MEDS: ELIQUIS PO SCH (20:06)
[2024-10-22 04:09] VITALS: O2SAT 97
[2024-10-22 06:21] LABS: MEAN PLATELET VOLUME 8.2 fL (7.4-11.0); RED CELL DISTRIBUTION WIDTH 14.0 % (11.6-16.5)
[2024-10-22 06:43] LABS: COR NA(FOR HYPERGLY) 142 mmol/L (136-145); CREATININE 1.07 mg/dL (0.55-1.02); eGFR NON BLACK RACES 52 (>60)
[2024-10-22 08:04] VITALS: BP 127/59; PULSE 71; TEMP 97.5
== END 2024-10-22 09:30 | disposition home or self-care (01) ==
LOC: MED/SURG
PROVIDERS: ADMIT Surgery; ATTEND Surgery
DX: E78.5 Hyperlipidemia, unspecified; E83.51 Hypocalcemia; Z01.810 Encounter for preprocedural cardiovascular examination; K21.9 Gastro-esophageal reflux disease without esophagitis; R94.31 Abnormal electrocardiogram [ECG] [EKG]; I48.91 Unspecified atrial fibrillation; R13.11 Dysphagia, oral phase; Z79.01 Long term (current) use of anticoagulants; I10 Essential (primary) hypertension; K80.12 Calculus of gallbladder with acute and chronic cholecystitis without obstruction; E03.8 Other specified hypothyroidism; R94.4 Abnormal results of kidney function studies; K66.0 Peritoneal adhesions (postprocedural) (postinfection); E11.65 Type 2 diabetes mellitus with hyperglycemia; R10.84 Generalized abdominal pain; F41.8 Other specified anxiety disorders; Z01.811 Encounter for preprocedural respiratory examination